=== PATIENT | female | born 1990 | race Caucasian/White ===

== ENCOUNTER 2018-06-09 09:14 | Emergency (ER) | payer BC ==
--- NOTE | 2018-06-09 09:49 | EDM.PDOC ---
ED HPI GENERAL MEDICAL PROBLEM - General Chief Complaint: Genitourinary Problem Stated Complaint: blood in urine Time Seen by Provider: 06/09/18 09:39 Source of Information: Reports: Patient History Limitations: Reports: No Limitations - History of Present Illness INITIAL COMMENTS - FREE TEXT/NARRATIVE: History of present illness: []Patient's had 2 day history of urinary discomfort. She has had UTIs in the past but has never had blood in her urine until this morning. She has had some fevers and chills but no abdominal pain, nausea, vomiting or diarrhea. Review of systems: As per history of present illness and below otherwise all systems reviewed and negative. Past medical history: As per history of present illness and as reviewed below otherwise noncontributory. Surgical history: As per history of present illness and as reviewed below otherwise noncontributory. Social history: No reported history of drug or alcohol abuse. Family history: As per history of present illness and as reviewed below otherwise noncontributory. Physical exam: General: Well developed, well nourished in NAD HEENT: Atraumatic, normocephalic, pupils reactive, negative for conjunctival pallor or scleral icterus, mucous membranes moist, throat clear, neck supple, nontender, trachea midline. Lungs: Clear to auscultation, breath sounds equal bilaterally, chest nontender. Heart: S1S2, regular, negative for clicks, rubs, or JVD. Abdomen: Soft, nondistended, nontender. Negative for masses or hepatosplenomegaly. Negative for costovertebral tenderness. Pelvis: Stable nontender. Genitourinary: Deferred. Rectal: Deferred. Extremities: Atraumatic, negative for cords or calf pain. Neurovascular unremarkable. Neuro: Awake, alert, oriented. Cranial nerves II through XII unremarkable. Cerebellum unremarkable. Motor and sensory unremarkable throughout. Exam nonfocal. Skin:warm and dry Diagnostics: UA-2 to count WBCs and RBCs positive leuk esterase, urine culture, hCG Therapeutics: Rocephin IM ED Course: Unremarkable Impression: UTI Prescriptions: Bactrim, Pyridium Plan: Take meds as directed, increase fluids, follow-up with primary care, return if symptoms worsen or change. Definitive disposition and diagnosis as appropriate pending reevaluation and review of above. Kidneys Pain Score (Numeric/FACES): 8 - Related Data Allergies Allergy/AdvReac Type Severity Reaction Status Date / Time No Known Allergies Allergy Verified 06/09/18 09:23 Home Meds: Home Meds Amitriptyline [Elavil] 5 mg PO DAILY 06/09/18 [History] Phenazopyridine [Pyridium] 100 mg PO TID #9 tab 06/09/18 [Rx] Sulfamethoxazole/Trimethoprim [Bactrim Ds Tablet] 1 each PO BID #20 tablet 06/09 [Rx] Past Medical History HEENT History: Reports: None Cardiovascular History: Reports: None Respiratory History: Reports: None Gastrointestinal History: Reports: None Genitourinary History: Reports: UTI, Recurrent 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 Social & Family History - Family History Family Medical History: Noncontributory - Tobacco Use Smoking Status *Q: Never Smoker - Caffeine Use Caffeine Use: Reports: Coffee - Recreational Drug Use Recreational Drug Use: No ED ROS GENERAL - Review of Systems Review Of Systems: ROS reveals no pertinent complaints other than HPI. ED EXAM, RENAL/ - Physical Exam Exam: See Below (see history of present illness) Course - Vital Signs Last Recorded V/S: Last Vital Signs Temp 96.9 F 06/09/18 09:20 Pulse 91 06/09/18 09:20 Resp 16 06/09/18 09:20 BP 135/106 H 06/09/18 09:20 Pulse Ox 97 06/09/18 09:20 - Orders/Labs/Meds Orders: Active Orders 24 hr Category Date Time Status CULTURE URINE [RM] Stat Lab 06/09/18 09:30 Received cefTRIAXone [Rocephin] 1,000 mg Med 06/09/18 10:06 Active Lidocaine 1% [Xylocaine-MPF 1%] 1 ml IM ONETIME Medication Orders Ceftriaxone Sodium 1,000 mg/ (Lidocaine HCl) 1 mls @ 1 mls/sec IM ONETIME ONE Stop: 06/09/18 10:07 Labs: Laboratory Tests 06/09/18 06/09/18 Range/Units 09:30 09:30 Urine Color YELLOW Urine Appearance SLT CLOUDY Urine pH 6.5 (5.0-8.0) Ur Specific [place] 1.025 (1.001-1.035) Urine Protein 100 (NEGATIVE) mg/dL Urine Glucose (UA) NEGATIVE (NEGATIVE) mg/dL Urine Ketones NEGATIVE (NEGATIVE) mg/dL Urine Occult Blood LARGE H (NEGATIVE) Urine Nitrite NEGATIVE (NEGATIVE) Urine Bilirubin SMALL H (NEGATIVE) Urine Ictotest Urine Urobilinogen 0.2 (<2.0) EU/dL Ur Leukocyte Esterase LARGE (NEGATIVE) Urine RBC TOO NUMEROUS TO CT H (0-2/HPF) Urine WBC TO NUMEROUS TO COUNT H (0-5/HPF) Ur Epithelial Cells FEW (NONE-FEW) Urine Bacteria 1+ H (NEGATIVE) Urinalysis Comment Urine HCG, Qual NEGATIVE (NEGATIVE) Meds: Medications Generic Name Dose Route Start Last Admin Trade Name Freq PRN Reason Stop Dose Admin Ceftriaxone Sodium 1,000 mg/ 1 mls @ 1 mls/sec 06/09/18 10:06 Lidocaine HCl IM 06/09/18 10:07 ONETIME ONE Departure - Departure Time of Disposition: 10:20 Disposition: Home, Self-Care 01 Condition: Good Clinical Impression: UTI (urinary tract infection) Qualifiers: Urinary tract infection type: site unspecified Hematuria presence: with hematuria Qualified Code(s): N39.0 - Urinary tract infection, site not specified ; R31.9 - Hematuria, unspecified - Discharge Information *PRESCRIPTION DRUG MONITORING PROGRAM REVIEWED*: No *COPY OF PRESCRIPTION DRUG MONITORING REPORT IN PATIENT TOÑA: No Prescriptions: Phenazopyridine [Pyridium] 100 mg PO TID #9 tab Sulfamethoxazole/Trimethoprim [Bactrim Ds Tablet] 1 each PO BID #20 tablet Referrals: PCP,None [Primary Care Provider] - Forms: ED Department Discharge Additional Instructions: The following information is given to patients seen in the emergency department who are being discharged to home. This information is to outline your options for follow-up care. We provide all patients seen in our emergency department with a follow-up referral. The need for follow-up, as well as the timing and circumstances, are variable depending upon the specifics of your emergency department visit. If you don't have a primary care physician on staff, we will provide you with a referral. We always advise you to contact your personal physician following an emergency department visit to inform them of the circumstance of the visit and for follow-up with them and/or the need for any referrals to a consulting specialist. The emergency department will also refer you to a specialist when appropriate. This referral assures that you have the opportunity for follow-up care with a specialist. All of these measure are taken in an effort to provide you with optimal care, which includes your follow-up. Under all circumstances we always encourage you to contact your private physician who remains a resource for coordinating your care. When calling for follow-up care, please make the office aware that this follow-up is from your recent emergency room visit. If for any reason you are refused follow-up, please contact the [facility] Emergency Department at and asked to speak to the emergency department charge nurse. Take meds as directed and increase fluids until urine is clear, follow-up with primary care, return if symptoms worsen or change. [facility] [address] [place] [id number] - My Orders Last 24 Hours: My Active Orders 06/09/18 09:30 CULTURE URINE [RM] Stat 06/09/18 10:06 cefTRIAXone [Rocephin] 1,000 mg Lidocaine 1% [Xylocaine-MPF 1%] 1 ml IM ONETIME - Assessment/Plan Last 24 Hours: My Active Orders 06/09/18 09:30 CULTURE URINE [RM] Stat 06/09/18 10:06 cefTRIAXone [Rocephin] 1,000 mg Lidocaine 1% [Xylocaine-MPF 1%] 1 ml IM ONETIME
[2018-06-09] MEDS ORDERED: cefTRIAXone 1,000 MG in Lidocaine 1% 1 ML IM ONE (10:06)
== END 2018-06-09 10:48 | disposition home or self-care (01) ==
LOC: MW.ED 09:14
DX: N39.0 Urinary tract infection, site not specified (principal)
CPT/HCPCS: 81001; 81025; 87086; 87088; 87186; 96372; 99283; J0696; 99282

== ENCOUNTER 2020-01-11 10:18 | Inpatient (IN) | payer MEDICAID ==
[2020-01-11] MEDS ORDERED: Butorphanol 1 MG/ML SDV IVPUSH PRN (11:25)
[2020-01-11] MEDS ORDERED: Tranexamic Acid 1,000 MG in Sodium Chloride 0.9% 100 ML IV PRN (11:25)
[2020-01-11] MEDS ORDERED: Sodium Chloride 0.9% 2.5 ML Syringe FLUSH PRN (11:25)
[2020-01-11] MEDS ORDERED: Sodium Chloride 0.9% 10 ML Syringe FLUSH PRN (11:25)
[2020-01-11] MEDS ORDERED: Terbutaline 1 MG/ML SDV SUBCUT PRN (11:25)
[2020-01-11] MEDS ORDERED: Lidocaine 1% 50 ML MDV INJECT PRN (11:25)
[2020-01-11] MEDS ORDERED: Misoprostol 200 MCG Tab PO PRN (11:25)
[2020-01-11] MEDS ORDERED: Carboprost Tromethamine 250 MCG/1 ML Amp IM PRN (11:25)
[2020-01-11] MEDS ORDERED: Nalbuphine 10 MG/1 ML Vial IVPUSH PRN (11:25)
[2020-01-11] MEDS ORDERED: Methylergonovine 0.2 MG/1 ML Amp IM PRN (11:25)
[2020-01-11] MEDS ORDERED: Water For Irrigation,Sterile 1,000 ML Container IRR PRN (11:25)
[2020-01-11] MEDS ORDERED: Sodium Chloride 0.9% 10 ML SDV IV PRN (11:25)
[2020-01-11] MEDS ORDERED: Oxytocin/0.9 % Sodium Chloride 30 UNIT/500 ML BAG IV SCH ×2 (11:30)
[2020-01-11 11:48] LABS: BLOOD UREA NITROGEN,BUN 7 mg/dL (7.0-18.0); CHLORIDE,CL 102 mmol/L (98-107); GLUCOSE RANDOM 78 mg/dL (74-106); POTASSIUM,K 3.8 mmol/L (3.5-5.1); SODIUM,NA 136 mmol/L (136-145)
[2020-01-11] MEDS: Lactated Ringers 1,000 ML IV SCH ×3 (12:29→23:59)
[2020-01-11] MEDS ORDERED: Bupivicaine/fentaNYL/NS 250 ML ONE (19:36)
--- NOTE | 2020-01-11 20:47 | PCM.PREANE ---
Preanesthetic Assessment - Procedure Proposed Procedure: Continuous Labor Epidural - Anesthesia/Transfusion/Family Hx Anesthesia History: Prior Anesthesia Without Reaction Transfusion History: No Prior Transfusion(s) - Review of Systems General: No Symptoms Pulmonary: No Symptoms Cardiovascular: No Symptoms Gastrointestinal: No Symptoms Neurological: No Symptoms Other: Reports: None - Physical Assessment Height: 5 ft 2 in Weight: 86.183 kg ASA Class: 2 Mental Status: Alert & Oriented x3 Airway Class: Mallampati = 2 Dentition: Reports: Normal Dentition Thyro-Mental Finger Breadths: 3 Mouth Opening Finger Breadths: 3 ROM/Head Extension: Full Lungs: Clear to Auscultation, Normal Respiratory Effort Cardiovascular: Regular Rate, Regular Rhythm - Lab Values: Laboratory Last Values WBC 10.70 K/uL (4.0-11.0) 01/11/20 11:18 RBC 3.91 M/uL (4.30-5.90) L 01/11/20 11:18 Hgb 12.5 g/dL (12.0-16.0) 01/11/20 11:18 Hct 35.9 % (36.0-46.0) L 01/11/20 11:18 MCV 91.8 fL (80.0-98.0) 01/11/20 11:18 MCH 32.0 pg (27.0-32.0) 01/11/20 11:18 MCHC 34.8 g/dL (31.0-37.0) 01/11/20 11:18 RDW Std Deviation 44.4 fl (28.0-62.0) 01/11/20 11:18 RDW Coeff of El 13 % (11.0-15.0) 01/11/20 11:18 Plt Count 122 K/uL (150-400) L 01/11/20 11:18 MPV 11.00 fL (7.40-12.00) 01/11/20 11:18 Nucleated RBC % 0.0 /100WBC 01/11/20 11:18 Nucleated RBCs # 0 K/uL 01/11/20 11:18 Sodium 136 mmol/L (136-145) 01/11/20 11:18 Potassium 3.8 mmol/L (3.5-5.1) 01/11/20 11:18 Chloride 102 mmol/L (98-107) 01/11/20 11:18 Carbon Dioxide 23.0 mmol/L (21.0-32.0) 01/11/20 11:18 BUN 7 mg/dL (7.0-18.0) 01/11/20 11:18 Creatinine 0.6 mg/dL (0.6-1.0) 01/11/20 11:18 Est Cr Clr Drug Dosing TNP 01/11/20 11:18 Estimated GFR (MDRD) > 60.0 ml/min 01/11/20 11:18 Glucose 78 mg/dL (74-106) 01/11/20 11:18 Uric Acid 4.8 mg/dL (2.6-7.2) 01/11/20 11:18 Calcium 8.3 mg/dL (8.5-10.1) L 01/11/20 11:18 Total Bilirubin 0.6 mg/dL (0.2-1.0) 01/11/20 11:18 AST 20 IU/L (15-37) 01/11/20 11:18 ALT 21 IU/L (14-63) 01/11/20 11:18 Alkaline Phosphatase 135 U/L (46-116) H 01/11/20 11:18 Total Protein 6.2 g/dL (6.4-8.2) L 01/11/20 11:18 Albumin 2.9 g/dL (3.4-5.0) L 01/11/20 11:18 Globulin 3.3 g/dL (2.6-4.0) 01/11/20 11:18 Albumin/Globulin Ratio 0.9 (0.9-1.6) 01/11/20 11:18 Urine Color YELLOW 01/11/20 11:10 Urine Appearance CLEAR 01/11/20 11:10 Urine pH 7.0 (5.0-8.0) 01/11/20 11:10 Ur Specific [place] 1.020 (1.001-1.035) 01/11/20 11:10 Urine Protein NEGATIVE mg/dL (NEGATIVE) 01/11/20 11:10 Urine Glucose (UA) NEGATIVE mg/dL (NEGATIVE) 01/11/20 11:10 Urine Ketones NEGATIVE mg/dL (NEGATIVE) 01/11/20 11:10 Urine Occult Blood TRACE-INTACT (NEGATIVE) H 01/11/20 11:10 Urine Nitrite NEGATIVE (NEGATIVE) 01/11/20 11:10 Urine Bilirubin NEGATIVE (NEGATIVE) 01/11/20 11:10 Urine Urobilinogen 0.2 EU/dL (<2.0) 01/11/20 11:10 Ur Leukocyte Esterase NEGATIVE (NEGATIVE) 01/11/20 11:10 Ur Random Creatinine 97.8 mg/dL 01/11/20 11:00 U Random Total Protein 14.7 mg/dL (<11.9) H 01/11/20 11:00 Protein/Creatinin Ratio 0.2 01/11/20 11:00 Membrane Rupture POSITIVE 01/11/20 10:40 Blood Type O POSITIVE 01/11/20 11:18 Antibody Screen NEGATIVE 01/11/20 11:18 - Allergies Allergies/Adverse Reactions: Allergies Allergy/AdvReac Type Severity Reaction Status Date / Time No Known Allergies Allergy Verified 06/09/18 09:23 - Anesthesia Plan Free Text/Narrative:: Continuous Labor Epidural - Acknowledgements Anesthesia Type Planned: Spinal Pt an Appropriate Candidate for the Planned Anesthesia: Yes Alternatives and Risks of Anesthesia Discussed w Pt/Guardian: Yes Pt/Guardian Understands and Agrees with Anesthesia Plan: Yes PreAnesthesia Questionnaire HEENT History: Reports: None Cardiovascular History: Reports: Hypertension Respiratory History: Reports: None Gastrointestinal History: Reports: None Genitourinary History: Reports: UTI, Recurrent 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 Para: 0 LMP (Approximate): Musculoskeletal History: Reports: None Neurological History: Reports: None Psychiatric History: Reports: None Endocrine/Metabolic History: Reports: None Hematologic History: Reports: None Immunologic History: Reports: None Oncologic (Cancer) History: Reports: None Dermatologic History: Reports: None - Infectious Disease History Infectious Disease History: Reports: Chicken Pox, Human Papilloma Virus (HPV) - Past Surgical History GI Surgical History: Reports: Appendectomy Female Surgical History: Reports: Other (See Below) Other Female Surgeries/Procedures: "Kidney sugery" at 21 per patient. Left ureteral stent & repair. Oncologic Surgical History: Reports: Lumpectomy Other Oncologic Surgeries/Procedures: Right Lumpectomy - SUBSTANCE USE Smoking Status *Q: Never Smoker Second Hand Smoke Exposure: No Recreational Drug Use History: No - HOME MEDS Home Medications: Home Meds Amitriptyline [Elavil] 5 mg PO DAILY 06/09/18 [History] Phenazopyridine [Pyridium] 100 mg PO TID #9 tab 06/09/18 [Rx] Sulfamethoxazole/Trimethoprim [Bactrim Ds Tablet] 1 each PO BID #20 tablet 06/09 [Rx] Acetaminophen [Tylenol] 1 cap PO ASDIRECTED PRN 01/11/20 [History] Magnesium Oxide [Mag-Oxide] 200 mg PO DAILY 01/11/20 [History] Nitrofurantoin Monohyd/M-Cryst [Macrobid 100 mg Capsule] 100 mg PO DAILY [History] Pnv No.95/Ferrous Fum/Folic AC [ Vitamin Tablet] 1 tab PO DAILY [History] - CURRENT (IN HOUSE) MEDS Current Meds: Current Medications Butorphanol Tartrate (Stadol) 1 mg IVPUSH Q1H PRN PRN Reason: Pain Last Admin: 01/11/20 18:31 Dose: 1 mg Carboprost Tromethamine (Hemabate Ds) 250 mcg IM ASDIRECTED PRN PRN Reason: Post Hemorrhage Tranexamic Acid 1,000 mg/ (Sodium Chloride) 110 mls @ 660 mls/hr IV ONETIME PRN PRN Reason: Bleeding Lactated Ringer's (Ringers, Lactated) 1,000 mls @ 150 mls/hr IV ASDIRECTED CONCHIS Last Infusion: 01/11/20 20:25 Dose: 150 mls/hr Oxytocin/Sodium Chloride (Oxytocin 30 Unit/500 Ml-Ns) 30 unit in 500 mls @ 500 mls/hr IV ASDIRECTED CONCHIS Oxytocin/Sodium Chloride (Oxytocin 30 Unit/500 Ml-Ns) 30 unit in 500 mls @ 2 mls/hr IV TITRATE CONCHIS; Protocol Last Titration: 01/11/20 14:15 Dose: 8 munits/min, 8 mls/hr Lidocaine HCl (Xylocaine 1%) 50 ml INJECT ONETIME PRN PRN Reason: Laceration repair Methylergonovine Maleate (Methergine) 0.2 mg IM ASDIRECTED PRN PRN Reason: Post Hemorrhage Misoprostol (Cytotec) 200 mcg PO ONETIME PRN PRN Reason: Post Hemorrhage Nalbuphine HCl (Nubain) 10 mg IVPUSH Q1H PRN PRN Reason: Pain (severe 7-10) Sodium Chloride (Saline Flush) 10 ml FLUSH ASDIRECTED PRN PRN Reason: Keep Vein Open Sodium Chloride (Saline Flush) 2.5 ml FLUSH ASDIRECTED PRN PRN Reason: Keep Vein Open Sodium Chloride (Normal Saline) 10 ml IV ASDIRECTED PRN PRN Reason: IV Use Sterile Water (Sterile Water For Irrigation) 1,000 ml IRR ASDIRECTED PRN PRN Reason: delivery Terbutaline Sulfate (Brethine) 0.25 mg SUBCUT ASDIRECTED PRN PRN Reason: Tacysystole Discontinued Medications Fentanyl/Bupivacaine HCl (Fentanyl/Bupivacaine/Ns 2 Mcg-0.125% 250 Ml) Confirm Administered Dose 250 mls @ as directed .ROUTE .[facility] ONE Stop: 01/11/20 19:37
[2020-01-11] MEDS ORDERED: fentaNYL 100 MCG/2 ML SDV ONE (23:25)
[2020-01-11] MEDS ORDERED: Bupivacaine 0.25% 10 ML SDV ONE (23:52)
--- NOTE | 2020-01-12 00:18 | PCM.SN.2 ---
- Free Text/Narrative Note: 01/11/2020 at 2315: Called for Patient with inadequate pain control. Patient dilated to 8 cm and rating pain 6/10 with contractions. Fentanyl 100 mcg given at 2330. Changed pump settings to 6 ml continuous infusion, 6 ml bolus option every 10 minutes with lockout max dose of 24ml/hr. Patient bolus 6 ml initiated via pump at approximately 2336. At 2043, patient continues to rate pain 5/10. Clinician bolus of 3 ml given via pump. Vital signs remain stable throughout. Patient repositioned by RN. At 2350, patient continues with minimal relief and rates pain 5/10. Bupivacaine 0.25% 5 ml given manually at 2352. At 0005, patient rates pain 2/10 and feels comfortable at this time. Dr. Hwang has been here and is assessing patient. Will continue to monitor as needed.
--- NOTE | 2020-01-12 02:46 | PCM.DEL ---
L & D Note - General Info Date of Service: 01/12/20 Mother's Due Date: 01/20/20 - Delivery Note Labor: Induced by Oxytocin Delivery Outcome: Livebirth Infant Delivery Method: Spontaneous Vaginal Delivery-Single Delivery Mode: Spontaneous Presentation: Left Occiput Posterior (LOP) Nuchal Cord: None Prep: Other Anesthesia Type: Epidural, Local Anesthetic: Lidocaine (Xylocaine) 0.5% Plain Local Anesthetic Volume: Other (10 ml) Amniotic Fluid Description: Clear Episiotomy Type: None Laceration: Vaginal Suture type: Vicryl Suture size: 3-0 Placenta: Intact, Spontaneous Cord: 3 Vessels Estimated Blood Loss: 200 Resuscitation Needed: No : Suctioned Score 1 min: 8 Score 5 min: 9 Delivery Comments (Free Text/Narrative):: PROM with induction, gestational hypertension, negative pre-clamptic evaluation. Liveborn Male 2880 grams. - General Info Date of Service: 01/12/20 - Patient Data Weight - Most Recent: 86.183 kg Lab Results Last 24 Hours: Laboratory Results - last 24 hr 01/11/20 01/11/20 01/11/20 Range/Units 10:40 11:00 11:10 WBC (4.0-11.0) K/uL RBC (4.30-5.90) M/uL Hgb (12.0-16.0) g/dL Hct (36.0-46.0) % MCV (80.0-98.0) fL MCH (27.0-32.0) pg MCHC (31.0-37.0) g/dL RDW Std Deviation (28.0-62.0) fl RDW Coeff of El (11.0-15.0) % Plt Count (150-400) K/uL MPV (7.40-12.00) fL Nucleated RBC % /100WBC Nucleated RBCs # K/uL Sodium (136-145) mmol/L Potassium (3.5-5.1) mmol/L Chloride (98-107) mmol/L Carbon Dioxide (21.0-32.0) mmol/L BUN (7.0-18.0) mg/dL Creatinine (0.6-1.0) mg/dL Est Cr Clr Drug Dosing Estimated GFR (MDRD) ml/min Glucose (74-106) mg/dL Uric Acid (2.6-7.2) mg/dL Calcium (8.5-10.1) mg/dL Total Bilirubin (0.2-1.0) mg/dL AST (15-37) IU/L ALT (14-63) IU/L Alkaline Phosphatase (46-116) U/L Total Protein (6.4-8.2) g/dL Albumin (3.4-5.0) g/dL Globulin (2.6-4.0) g/dL Albumin/Globulin Ratio (0.9-1.6) Urine Color YELLOW Urine Appearance CLEAR Urine pH 7.0 (5.0-8.0) Ur Specific [place] 1.020 (1.001-1.035) Urine Protein NEGATIVE (NEGATIVE) mg/dL Urine Glucose (UA) NEGATIVE (NEGATIVE) mg/dL Urine Ketones NEGATIVE (NEGATIVE) mg/dL Urine Occult Blood TRACE-INTACT H (NEGATIVE) Urine Nitrite NEGATIVE (NEGATIVE) Urine Bilirubin NEGATIVE (NEGATIVE) Urine Urobilinogen 0.2 (<2.0) EU/dL Ur Leukocyte Esterase NEGATIVE (NEGATIVE) Ur Random Creatinine 97.8 mg/dL U Random Total Protein 14.7 H (<11.9) mg/dL Protein/Creatinin Ratio 0.2 Membrane Rupture POSITIVE Blood Type Antibody Screen 01/11/20 01/11/20 01/11/20 Range/Units 11:18 11:18 11:18 WBC 10.70 (4.0-11.0) K/uL RBC 3.91 L (4.30-5.90) M/uL Hgb 12.5 (12.0-16.0) g/dL Hct 35.9 L (36.0-46.0) % MCV 91.8 (80.0-98.0) fL MCH 32.0 (27.0-32.0) pg MCHC 34.8 (31.0-37.0) g/dL RDW Std Deviation 44.4 (28.0-62.0) fl RDW Coeff of El 13 (11.0-15.0) % Plt Count 122 L (150-400) K/uL MPV 11.00 (7.40-12.00) fL Nucleated RBC % 0.0 /100WBC Nucleated RBCs # 0 K/uL Sodium 136 (136-145) mmol/L Potassium 3.8 (3.5-5.1) mmol/L Chloride 102 (98-107) mmol/L Carbon Dioxide 23.0 (21.0-32.0) mmol/L BUN 7 (7.0-18.0) mg/dL Creatinine 0.6 (0.6-1.0) mg/dL Est Cr Clr Drug Dosing TNP Estimated GFR (MDRD) > 60.0 ml/min Glucose 78 (74-106) mg/dL Uric Acid 4.8 (2.6-7.2) mg/dL Calcium 8.3 L (8.5-10.1) mg/dL Total Bilirubin 0.6 (0.2-1.0) mg/dL AST 20 (15-37) IU/L ALT 21 (14-63) IU/L Alkaline Phosphatase 135 H (46-116) U/L Total Protein 6.2 L (6.4-8.2) g/dL Albumin 2.9 L (3.4-5.0) g/dL Globulin 3.3 (2.6-4.0) g/dL Albumin/Globulin Ratio 0.9 (0.9-1.6) Urine Color Urine Appearance Urine pH (5.0-8.0) Ur Specific [place] (1.001-1.035) Urine Protein (NEGATIVE) mg/dL Urine Glucose (UA) (NEGATIVE) mg/dL Urine Ketones (NEGATIVE) mg/dL Urine Occult Blood (NEGATIVE) Urine Nitrite (NEGATIVE) Urine Bilirubin (NEGATIVE) Urine Urobilinogen (<2.0) EU/dL Ur Leukocyte Esterase (NEGATIVE) Ur Random Creatinine mg/dL U Random Total Protein (<11.9) mg/dL Protein/Creatinin Ratio Membrane Rupture Blood Type O POSITIVE Antibody Screen NEGATIVE Med Orders - Current: Current Medications Butorphanol Tartrate (Stadol) 1 mg IVPUSH Q1H PRN PRN Reason: Pain Last Admin: 01/11/20 18:31 Dose: 1 mg Carboprost Tromethamine (Hemabate Ds) 250 mcg IM ASDIRECTED PRN PRN Reason: Post Hemorrhage Tranexamic Acid 1,000 mg/ (Sodium Chloride) 110 mls @ 660 mls/hr IV ONETIME PRN PRN Reason: Bleeding Lactated Ringer's (Ringers, Lactated) 1,000 mls @ 150 mls/hr IV ASDIRECTED CONCHIS Last Admin: 01/11/20 23:59 Dose: 500 mls/hr Oxytocin/Sodium Chloride (Oxytocin 30 Unit/500 Ml-Ns) 30 unit in 500 mls @ 500 mls/hr IV ASDIRECTED [facility] Oxytocin/Sodium Chloride (Oxytocin 30 Unit/500 Ml-Ns) 30 unit in 500 mls @ 2 mls/hr IV TITRATE CONCHIS; Protocol Last Titration: 01/11/20 14:15 Dose: 8 munits/min, 8 mls/hr Lidocaine HCl (Xylocaine 1%) 50 ml INJECT ONETIME PRN PRN Reason: Laceration repair Methylergonovine Maleate (Methergine) 0.2 mg IM ASDIRECTED PRN PRN Reason: Post Hemorrhage Misoprostol (Cytotec) 200 mcg PO ONETIME PRN PRN Reason: Post Hemorrhage Nalbuphine HCl (Nubain) 10 mg IVPUSH Q1H PRN PRN Reason: Pain (severe 7-10) Sodium Chloride (Saline Flush) 10 ml FLUSH ASDIRECTED PRN PRN Reason: Keep Vein Open Sodium Chloride (Saline Flush) 2.5 ml FLUSH ASDIRECTED PRN PRN Reason: Keep Vein Open Sodium Chloride (Normal Saline) 10 ml IV ASDIRECTED PRN PRN Reason: IV Use Sterile Water (Sterile Water For Irrigation) 1,000 ml IRR ASDIRECTED PRN PRN Reason: delivery Terbutaline Sulfate (Brethine) 0.25 mg SUBCUT ASDIRECTED PRN PRN Reason: Tacysystole Discontinued Medications Bupivacaine HCl (Sensorcaine-Mpf 0.25%) Confirm Administered Dose 10 ml .ROUTE .STK-MED ONE Stop: 01/11/20 23:53 Fentanyl (Sublimaze) Confirm Administered Dose 100 mcg .ROUTE .STK-MED ONE Stop: 01/11/20 23:26 Fentanyl/Bupivacaine HCl (Fentanyl/Bupivacaine/Ns 2 Mcg-0.125% 250 Ml) Confirm Administered Dose 250 mls @ as directed .ROUTE .STK-MED ONE Stop: 01/11/20 19:37 - Problem List & Annotations (1) PROM with onset of labor within 24 hours, delivered, curr hospitaliz SNOMED Code(s): 482090842, 637353498 Code(s): O42.00 - JEB ROM, ONSET LABOR W/N 24 HR OF RUPT, UNSP WEEKS OF GEST Status: Acute Current Visit: Yes (2) Vaginal delivery SNOMED Code(s): 529772402 Code(s): O80 - ENCOUNTER FOR FULL-TERM UNCOMPLICATED DELIVERY Status: Acute Current Visit: Yes (3) Gestational thrombocytopenia without hemorrhage SNOMED Code(s): 053891798 Code(s): O99.119 - OTH DIS OF BLD/BLD-FORM ORG/IMMUN MECHNSM COMP PREG,UNSP TRI; D69.6 - THROMBOCYTOPENIA, UNSPECIFIED Status: Acute Current Visit: Yes (4) Chronic hypertension affecting SNOMED Code(s): 80714903 Code(s): O10.919 - UNSP PRE-EXISTING HTN COMP , UNSP TRIMESTER Status: Acute Current Visit: Yes - Problem List Review Problem List Initiated/Reviewed/Updated: Yes - My Orders Last 24 Hours: My Active Orders 01/11/20 10:52 Resuscitation Status Routine 01/11/20 10:53 Non Stress Test [RC] PER UNIT ROUTINE Up ad Arline [RC] ASDIRECTED Vaginal Exam [RC] Click to Edit Vital Signs [RC] PER UNIT ROUTINE 01/11/20 11:18 RPR (SYPHILIS SERO) W/ RFLX [REF] Routine 01/11/20 11:25 Patient Status [ADT] Routine Bedrest Bathroom Privileges [RC] ASDIRECTED Communication Order [RC] ASDIRECTED Communication Order [RC] ASDIRECTED Heart Tones [RC] CONTINUOUS May Shower [RC] ASDIRECTED Notify Provider [RC] PRN Notify Provider [RC] PRN Oxygen Therapy [RC] ASDIRECTED Up ad Arline [RC] ASDIRECTED Vaginal Exam [RC] PRN Vaginal Exam [RC] PRN Vital Signs [RC] PER UNIT ROUTINE Vital Signs [RC] PER UNIT ROUTINE Butorphanol [Stadol] 1 mg IVPUSH Q1H PRN Carboprost Tromethamine [Hemabate DS] 250 mcg IM ASDIRECTED PRN Lidocaine 1% [Xylocaine 1%] 50 ml INJECT ONETIME PRN Methylergonovine [Methergine] 0.2 mg IM ASDIRECTED PRN Nalbuphine [Nubain] 10 mg IVPUSH Q1H PRN Sodium Chloride 0.9% [Normal Saline] 10 ml IV ASDIRECTED PRN Sodium Chloride 0.9% [Saline Flush] 10 ml FLUSH ASDIRECTED PRN Sodium Chloride 0.9% [Saline Flush] 2.5 ml FLUSH ASDIRECTED PRN Terbutaline [Brethine] 0.25 mg SUBCUT ASDIRECTED PRN Tranexamic Acid [Cyklokapron] 1,000 mg Sodium Chloride 0.9% [Normal Saline] 100 ml IV ONETIME Water For Irrigation,Sterile [Sterile Water for Irrigation] 1,000 ml IRR ASDIRECTED PRN miSOPROStoL [Cytotec] 200 mcg PO ONETIME PRN Scalp Electrode [WOMSER] Per Unit Routine Peripheral IV Insertion Adult [OM.PC] Routine 01/11/20 11:30 Lactated Ringers [Ringers, Lactated] 1,000 ml IV ASDIRECTED Oxytocin/0.9 % Sodium Chloride [Oxytocin 30 Unit/500 ML-NS] 30 unit in 500 ml IV ASDIRECTED Oxytocin/0.9 % Sodium Chloride [Oxytocin 30 Unit/500 ML-NS] 30 unit in 500 ml IV TITRATE
[2020-01-12] MEDS ORDERED: Docusate Sodium 100 MG Cap PO PRN (02:48)
[2020-01-12] MEDS ORDERED: Acetaminophen 500 MG Tab PO PRN ×2 (02:48)
[2020-01-12] MEDS ORDERED: Ibuprofen 400 MG Tab PO PRN (02:48)
[2020-01-12] MEDS ORDERED: Witch Hazel Medicated Pads 40/Jar TOP PRN (02:48)
[2020-01-12] MEDS ORDERED: Bisacodyl 10 MG Supp RECTAL PRN (02:48)
[2020-01-12] MEDS ORDERED: Tranexamic Acid 1,000 MG in Sodium Chloride 0.9% 100 ML IV PRN (02:48)
[2020-01-12] MEDS ORDERED: Lanolin 100% Cream 7 GM Tube TOP PRN (02:48)
[2020-01-12] MEDS ORDERED: Benzocaine/Menthol 20%-0.5% Spray 78 GM Cannister TOP PRN (02:48)
--- NOTE | 2020-01-12 03:32 | OR ---
SURGEON: Uzma Hwang M.D. DATE OF PROCEDURE: 01/12/2020 PREOPERATIVE DIAGNOSES: 1. A 38-6/7-week intrauterine . 2. Premature rupture of membranes with induction. 3. Chronic hypertension. 4. Gestational thrombocytopenia. POSTOPERATIVE DIAGNOSES: 1. A 38-6/7-week intrauterine . 2. Premature rupture of membranes with induction. 3. Chronic hypertension. 4. Gestational thrombocytopenia. PROCEDURES: 1. Pitocin induction of labor. 2. Term spontaneous vaginal delivery. 3. Repair of a vaginal laceration. PRIMARY SURGEON: Uzma Hwang M.D. ANESTHESIA: Epidural and local. ESTIMATED BLOOD LOSS: Less than 200 mL. FINDINGS: A liveborn male, scores 8 and 9, weighing 2880 g. Placenta, spontaneous, Schultze, intact, with 3 vessels. A vaginal laceration was repaired. COMPLICATIONS: None known. DISPOSITION: Mother and baby are in the LDR in good condition. BRIEF HISTORY: This is a 29-year-old female. She is G1, P0; presents at 38-5/7 weeks' gestation, spontaneous rupture of membranes, clear fluid, 3 cm; was started on Pitocin overall through labor. Category I heart tones. Initially, she had elevated blood pressures on presentation. She is known to have chronic hypertension but has not required medications through . She had preeclamptic lab workup, which was negative, particularly with no proteinuria. She has had thrombocytopenia through the 3rd trimester, and platelets were stable relative to those drawn in the clinic at 122. She progressed to complete. DESCRIPTION OF PROCEDURE: With the patient in the dorsal lithotomy position, the patient pushed over a 2- hour time period to a 5+ station, at which time the head was delivered spontaneously and atraumatically over the perineum with support with subsequent delivery of the infant's shoulders and body without any difficulty. The was bulb suctioned by nose and mouth, and after the cord had ceased to pulsate, it was doubly clamped and cut. The infant was handed to the mother in the presence of the nurse attending the delivery. The was a liveborn male, scores 8 and 9, weighing 2880 g. Cord blood was collected for cord ABGs as well as routine cord blood sampling. Pitocin was initiated after delivery of the infant to assist with delivery of the placenta, which was delivered spontaneously, Schultze, intact, with 3 vessels. Upon inspection of the pelvis and perineum, there were no periurethral, vaginal sidewall, cervical, rectal, or perineal lacerations. There was a small vaginal lower-segment laceration extending approximately 3 cm. 1% lidocaine was injected, and 3-0 Vicryl was utilized in a running locked fashion to reapproximate the tissue. Final sponge, needle, and instrument counts were correct. There were no known complications. Mother and baby remained in the LDR in good condition. REYMUNDO HAGEN /[id number]
[2020-01-12] MEDS: Ibuprofen 800 MG Tab PO PRN ×2 (09:33→18:25)
--- NOTE | 2020-01-12 10:42 | PCM48HPAN ---
Post Anesthesia Note - EVALUATION WITHIN 48HRS OF ANESTHETIC Vital Signs in Normal Range: Yes Patient Participated in Evaluation: Yes Respiratory Function Stable: Yes Airway Patent: Yes Cardiovascular Function Stable: Yes Hydration Status Stable: Yes Pain Control Satisfactory: Yes Nausea and Vomiting Control Satisfactory: Yes Mental Status Recovered: Yes Vital Signs: Last Vital Signs Temp 36.4 C 01/12/20 07:43 Pulse 97 01/12/20 07:43 Resp 16 01/12/20 07:43 BP 121/84 01/12/20 07:43 Pulse Ox 100 01/12/20 07:43 - COMMENTS/OBSERVATIONS Free Text/Narrative:: Patient lying in bed. Has has been up without difficulty. No anesthesia complaints or concerns at this time. No anesthesia complications noted.
--- NOTE | 2020-01-12 15:54 | PCM.PNPP ---
- General Info Date of Service: 01/12/20 Functional Status: Reports: Pain Controlled, Tolerating Diet, Ambulating, Urinating - Review of Systems General: Reports: No Symptoms HEENT: Reports: No Symptoms Pulmonary: Reports: No Symptoms Cardiovascular: Reports: No Symptoms Gastrointestinal: Reports: No Symptoms Genitourinary: Reports: No Symptoms Musculoskeletal: Reports: No Symptoms Skin: Reports: No Symptoms Neurological: Reports: No Symptoms Psychiatric: Reports: No Symptoms - General Info Date of Service: 01/12/20 - Patient Data Vital Signs - Most Recent: Last Vital Signs Temp 36.4 C 01/12/20 07:43 Pulse 97 01/12/20 07:43 Resp 16 01/12/20 07:43 BP 121/84 01/12/20 07:43 Pulse Ox 100 01/12/20 07:43 Weight - Most Recent: 86.183 kg Lab Results - Last 24 Hours: Laboratory Results - last 24 hr 01/12/20 01/12/20 Range/Units 02:26 06:55 WBC 20.36 H (4.0-11.0) K/uL RBC 4.05 L (4.30-5.90) M/uL Hgb 12.9 (12.0-16.0) g/dL Hct 37.3 (36.0-46.0) % MCV 92.1 (80.0-98.0) fL MCH 31.9 (27.0-32.0) pg MCHC 34.6 (31.0-37.0) g/dL RDW Std Deviation 44.2 (28.0-62.0) fl RDW Coeff of El 13 (11.0-15.0) % Plt Count 145 L (150-400) K/uL MPV 10.60 (7.40-12.00) fL Nucleated RBC % 0.0 /100WBC Nucleated RBCs # 0 K/uL Cord ABG pH 7.332 (7.18-7.38) Cord ABG Base Excess -5 (-10--2) Cord VBG pH 7.439 (7.25-7.45) Cord VBG Base Excess -4 (-10--2) Med Orders - Current: Current Medications Acetaminophen (Tylenol Extra Strength) 500 mg PO Q4H PRN PRN Reason: Pain Acetaminophen (Tylenol Extra Strength) 1,000 mg PO Q4H PRN PRN Reason: Pain Benzocaine/Menthol (Dermoplast Pain Relief 20%-0.5% [place]) 78 gm TOP ASDIRECTED PRN PRN Reason: Perineal Comfort Measure Bisacodyl (Dulcolax) 10 mg RECTAL ONETIME PRN PRN Reason: Constipation Docusate Sodium (Colace) 100 mg PO BID PRN PRN Reason: Constipation Emollient Ointment (Lansinoh Hpa) 0 gm TOP ASDIRECTED PRN PRN Reason: Sore Nipples Tranexamic Acid 1,000 mg/ (Sodium Chloride) 110 mls @ 660 mls/hr IV ONETIME PRN PRN Reason: Bleeding Ibuprofen (Motrin) 400 mg PO Q4H PRN PRN Reason: Pain Ibuprofen (Motrin) 800 mg PO Q6H PRN PRN Reason: Pain Last Admin: 01/12/20 09:33 Dose: 800 mg Witch Mari (Tucks) 1 pad TOP ASDIRECTED PRN PRN Reason: comfort care Discontinued Medications Bupivacaine HCl (Sensorcaine-Mpf 0.25%) Confirm Administered Dose 10 ml .ROUTE .STK-MED ONE Stop: 01/11/20 23:53 Butorphanol Tartrate (Stadol) 1 mg IVPUSH Q1H PRN PRN Reason: Pain Last Admin: 01/11/20 18:31 Dose: 1 mg Carboprost Tromethamine (Hemabate Ds) 250 mcg IM ASDIRECTED PRN PRN Reason: Post Hemorrhage Fentanyl (Sublimaze) Confirm Administered Dose 100 mcg .ROUTE .STK-MED ONE Stop: 01/11/20 23:26 Tranexamic Acid 1,000 mg/ (Sodium Chloride) 110 mls @ 660 mls/hr IV ONETIME PRN PRN Reason: Bleeding Lactated Ringer's (Ringers, Lactated) 1,000 mls @ 150 mls/hr IV ASDIRECTED [facility] Last Admin: 01/11/20 23:59 Dose: 500 mls/hr Oxytocin/Sodium Chloride (Oxytocin 30 Unit/500 Ml-Ns) 30 unit in 500 mls @ 500 mls/hr IV ASDIRECTED [facility] Last Infusion: 01/12/20 02:40 Dose: 500 mls/hr Oxytocin/Sodium Chloride (Oxytocin 30 Unit/500 Ml-Ns) 30 unit in 500 mls @ 2 mls/hr IV TITRATE CONCHIS; Protocol Last Titration: 01/12/20 02:25 Dose: 0 munits/min, 0 mls/hr Fentanyl/Bupivacaine HCl (Fentanyl/Bupivacaine/Ns 2 Mcg-0.125% 250 Ml) Confirm Administered Dose 250 mls @ as directed .ROUTE .STK-MED ONE Stop: 01/11/20 19:37 Lidocaine HCl (Xylocaine 1%) 50 ml INJECT ONETIME PRN PRN Reason: Laceration repair Last Admin: 01/12/20 02:35 Dose: 50 ml Methylergonovine Maleate (Methergine) 0.2 mg IM ASDIRECTED PRN PRN Reason: Post Hemorrhage Misoprostol (Cytotec) 200 mcg PO ONETIME PRN PRN Reason: Post Hemorrhage Nalbuphine HCl (Nubain) 10 mg IVPUSH Q1H PRN PRN Reason: Pain (severe 7-10) Sodium Chloride (Saline Flush) 10 ml FLUSH ASDIRECTED PRN PRN Reason: Keep Vein Open Sodium Chloride (Saline Flush) 2.5 ml FLUSH ASDIRECTED PRN PRN Reason: Keep Vein Open Sodium Chloride (Normal Saline) 10 ml IV ASDIRECTED PRN PRN Reason: IV Use Sterile Water (Sterile Water For Irrigation) 1,000 ml IRR ASDIRECTED PRN PRN Reason: delivery Last Admin: 01/12/20 02:30 Dose: 1,000 ml Terbutaline Sulfate (Brethine) 0.25 mg SUBCUT ASDIRECTED PRN PRN Reason: Tacysystole - Interaction Infant Disposition, : [place] in Room with Family Support Person: Significant Other - Recovery Exam Fundal Tone: Firm Fundal Level: 1 Fingerbreadths Below Umbilicus Fundal Placement: Midline Lochia Amount: Scant Lochia Color: Rubra/Red Perineum Description: Intact, Minimal Bruising/Swelling Episiotomy/Laceration: None Bladder Status: Voiding - Exam Physical Findings Comment:: patient is sleeping well. - Problem List & Annotations (1) PROM with onset of labor within 24 hours, delivered, curr hospitaliz SNOMED Code(s): 197607939, 677186330 Code(s): O42.00 - JEB ROM, ONSET LABOR W/N 24 HR OF RUPT, UNSP WEEKS OF GEST Status: Acute Current Visit: Yes (2) Vaginal delivery SNOMED Code(s): 637211438 Code(s): O80 - ENCOUNTER FOR FULL-TERM UNCOMPLICATED DELIVERY Status: Acute Current Visit: Yes (3) Gestational thrombocytopenia without hemorrhage SNOMED Code(s): 922229538 Code(s): O99.119 - OTH DIS OF BLD/BLD-FORM ORG/IMMUN MECHNSM COMP PREG,UNSP TRI; D69.6 - THROMBOCYTOPENIA, UNSPECIFIED Status: Acute Current Visit: Yes (4) Chronic hypertension affecting SNOMED Code(s): 35490400 Code(s): O10.919 - UNSP PRE-EXISTING HTN COMP , UNSP TRIMESTER Status: Acute Current Visit: Yes - Problem List Review Problem List Initiated/Reviewed/Updated: Yes - My Orders Last 24 Hours: My Active Orders 01/12/20 02:48 Acetaminophen [Tylenol Extra Strength] 1,000 mg PO Q4H PRN Acetaminophen [Tylenol Extra Strength] 500 mg PO Q4H PRN Benzocaine/Menthol [Dermoplast Pain Relief 20%-0.5% [place]] 78 gm TOP ASDIRECTED PRN Docusate Sodium [Colace] 100 mg PO BID PRN Ibuprofen [Motrin] 400 mg PO Q4H PRN Ibuprofen [Motrin] 800 mg PO Q6H PRN Lanolin [Lansinoh HPA] See Dose Instructions TOP ASDIRECTED PRN Tranexamic Acid [Cyklokapron] 1,000 mg Sodium Chloride 0.9% [Normal Saline] 100 ml IV ONETIME bisacodyL [Dulcolax] 10 mg RECTAL ONETIME PRN witch Mari [Tucks] 1 pad TOP ASDIRECTED PRN 01/12/20 02:49 May Shower [RC] ASDIRECTED Up ad Arline [RC] ASDIRECTED Vital Signs [RC] PER UNIT ROUTINE Assess Lochia [WOMSER] Per Unit Routine Assess Uterine Involution [WOMSER] Per Unit Routine Perineal Care [OM.PC] Per Unit Routine Peripheral IV Discontinue [OM.PC] Routine 01/12/20 Breakfast Regular Diet [DIET] - Assessment Assessment:: PPD 0 after , PROM with induction, BP improved after delivery - Plan Plan:: Continue care.
[2020-01-13] MEDS: Ibuprofen 800 MG Tab PO PRN (06:56)
--- NOTE | 2020-01-13 10:52 | PCM.PNPP ---
- General Info Date of Service: 01/13/20 Functional Status: Reports: Pain Controlled, Tolerating Diet, Ambulating, Urinating - Review of Systems General: Reports: No Symptoms HEENT: Reports: No Symptoms Pulmonary: Reports: No Symptoms Cardiovascular: Reports: No Symptoms Gastrointestinal: Reports: No Symptoms Genitourinary: Reports: No Symptoms Musculoskeletal: Reports: No Symptoms Skin: Reports: No Symptoms Neurological: Reports: No Symptoms Psychiatric: Reports: No Symptoms - Patient Data Vital Signs - Most Recent: Last Vital Signs Temp 36.5 C 01/13/20 05:11 Pulse 89 01/13/20 05:11 Resp 18 01/13/20 05:11 BP 132/95 H 01/13/20 05:11 Pulse Ox 96 01/13/20 05:11 Weight - Most Recent: 190 lb Med Orders - Current: Current Medications Acetaminophen (Tylenol Extra Strength) 500 mg PO Q4H PRN PRN Reason: Pain Acetaminophen (Tylenol Extra Strength) 1,000 mg PO Q4H PRN PRN Reason: Pain Benzocaine/Menthol (Dermoplast Pain Relief 20%-0.5% [place]) 78 gm TOP ASDIRECTED PRN PRN Reason: Perineal Comfort Measure Bisacodyl (Dulcolax) 10 mg RECTAL ONETIME PRN PRN Reason: Constipation Docusate Sodium (Colace) 100 mg PO BID PRN PRN Reason: Constipation Emollient Ointment (Lansinoh Hpa) 0 gm TOP ASDIRECTED PRN PRN Reason: Sore Nipples Last Admin: 01/12/20 20:54 Dose: 7 gm Tranexamic Acid 1,000 mg/ (Sodium Chloride) 110 mls @ 660 mls/hr IV ONETIME PRN PRN Reason: Bleeding Ibuprofen (Motrin) 400 mg PO Q4H PRN PRN Reason: Pain Ibuprofen (Motrin) 800 mg PO Q6H PRN PRN Reason: Pain Last Admin: 01/13/20 06:56 Dose: 800 mg Witch Mari (Tucks) 1 pad TOP ASDIRECTED PRN PRN Reason: comfort care Discontinued Medications Bupivacaine HCl (Sensorcaine-Mpf 0.25%) Confirm Administered Dose 10 ml .ROUTE .STK-MED ONE Stop: 01/11/20 23:53 Butorphanol Tartrate (Stadol) 1 mg IVPUSH Q1H PRN PRN Reason: Pain Last Admin: 01/11/20 18:31 Dose: 1 mg Carboprost Tromethamine (Hemabate Ds) 250 mcg IM ASDIRECTED PRN PRN Reason: Post Hemorrhage Fentanyl (Sublimaze) Confirm Administered Dose 100 mcg .ROUTE .[employer] ONE Stop: 01/11/20 23:26 Tranexamic Acid 1,000 mg/ (Sodium Chloride) 110 mls @ 660 mls/hr IV ONETIME PRN PRN Reason: Bleeding Lactated Ringer's (Ringers, Lactated) 1,000 mls @ 150 mls/hr IV ASDIRECTED [facility] Last Admin: 01/11/20 23:59 Dose: 500 mls/hr Oxytocin/Sodium Chloride (Oxytocin 30 Unit/500 Ml-Ns) 30 unit in 500 mls @ 500 mls/hr IV ASDIRECTED [facility] Last Infusion: 01/12/20 02:40 Dose: 500 mls/hr Oxytocin/Sodium Chloride (Oxytocin 30 Unit/500 Ml-Ns) 30 unit in 500 mls @ 2 mls/hr IV TITRATE CONCHIS; Protocol Last Titration: 01/12/20 02:25 Dose: 0 munits/min, 0 mls/hr Fentanyl/Bupivacaine HCl (Fentanyl/Bupivacaine/Ns 2 Mcg-0.125% 250 Ml) Confirm Administered Dose 250 mls @ as directed .ROUTE .[employer] ONE Stop: 01/11/20 19:37 Lidocaine HCl (Xylocaine 1%) 50 ml INJECT ONETIME PRN PRN Reason: Laceration repair Last Admin: 01/12/20 02:35 Dose: 50 ml Methylergonovine Maleate (Methergine) 0.2 mg IM ASDIRECTED PRN PRN Reason: Post Hemorrhage Misoprostol (Cytotec) 200 mcg PO ONETIME PRN PRN Reason: Post Hemorrhage Nalbuphine HCl (Nubain) 10 mg IVPUSH Q1H PRN PRN Reason: Pain (severe 7-10) Sodium Chloride (Saline Flush) 10 ml FLUSH ASDIRECTED PRN PRN Reason: Keep Vein Open Sodium Chloride (Saline Flush) 2.5 ml FLUSH ASDIRECTED PRN PRN Reason: Keep Vein Open Sodium Chloride (Normal Saline) 10 ml IV ASDIRECTED PRN PRN Reason: IV Use Sterile Water (Sterile Water For Irrigation) 1,000 ml IRR ASDIRECTED PRN PRN Reason: delivery Last Admin: 01/12/20 02:30 Dose: 1,000 ml Terbutaline Sulfate (Brethine) 0.25 mg SUBCUT ASDIRECTED PRN PRN Reason: Tacysystole - Infant Interaction Infant Disposition, : in Room with Family Interaction: Holding Infant Feeding: Breastfed Infant; Nursed Well Support Person: Significant Other - Recovery Exam Fundal Tone: Firm Fundal Level: 1 Fingerbreadths Below Umbilicus Fundal Placement: Midline Lochia Amount: Scant Lochia Color: Rubra/Red Perineum Description: Intact, Minimal Bruising/Swelling Episiotomy/Laceration: None Bladder Status: Voiding - Exam General: Alert, Oriented, Cooperative, No Acute Distress HEENT: Pupils Equal, Pupils Reactive Neck: Supple, Trachea Midline, No JVD Lungs: Normal Respiratory Effort GI/Abdominal Exam: Normal Bowel Sounds, Soft, Non-Tender, No Distention Extremities: Normal Inspection, Normal Range of Motion, Non-Tender, No Pedal Edema Skin: Warm, Dry, Intact Wound/Incisions: Healing Well Neurological: No New Focal Deficit Psy/Mental Status: Alert, Normal Affect, Normal Mood - Problem List Review Problem List Initiated/Reviewed/Updated: Yes - My Orders Last 24 Hours: My Active Orders 01/13/20 10:47 Ready for Discharge [RC] PER UNIT ROUTINE - Assessment Assessment:: 29yo with chronic HTN, gestational thrombocytopenia. PPD 1 after , PROM with induction, BP improved after delivery - Plan Plan:: BP wnl, not on antihypertensives Hgb stable, plt are improving, minimal bleeding Tolerating PO, ambulating and voiding Stable for discharge home. BP check in 1 week. Reviewed care instructions.
== END 2020-01-13 11:48 | disposition home or self-care (01) | DRG 806 ==
LOC: MW.OBCHECK 10:18 → MW.OB 10:20 → MW.OBCHECK 11:25 → MW.OB 11:25 → OBSVTOIN 01-12 02:24 → MW.OB 01-12 06:30
PROVIDERS: ADMIT Obstetrics & Gynecology; ATTEND Obstetrics & Gynecology
PROC: 10E0XZZ Delivery of Products of Conception, External Approach (ICD-10-PCS; principal; 2020-01-12)
PROC: 10E0XZZ Delivery of Products of Conception, External Approach (ICD-10-PCS; 2020-01-12)
PROC: 3E033VJ Introduction of Other Hormone into Peripheral Vein, Percutaneous Approach (ICD-10-PCS; 2020-01-12)
PROC: 3E0R3BZ Introduction of Anesthetic Agent into Spinal Canal, Percutaneous Approach (ICD-10-PCS; 2020-01-12)
DX: O42.02 Full-term premature rupture of membranes, onset of labor within 24 hours of rupture (principal); O99.12 Other diseases of the blood and blood-forming organs and certain disorders involving the immune mechanism complicating childbirth; Z37.0 Single live birth; O10.92 Unspecified pre-existing hypertension complicating childbirth; D69.6 Thrombocytopenia, unspecified; O76 Abnormality in fetal heart rate and rhythm complicating labor and delivery; Z3A.39 39 weeks gestation of pregnancy
CPT/HCPCS: 01967; 36415; 51701; 51702; 59025; 59409; 80053; 81003; 82570; 82803; 84112; 84156; 84550; 85027; 86592; 86593; 86850; 86900; 86901; A9270-GY; J0595; J2001; J2590; J3010; J3490; J7120

== ENCOUNTER 2025-07-03 18:52 | Observation (INO) | payer BC, MEDICAID ==
[2025-07-03] MEDS: NIFEdipine 30 MG Tab.ER PO ONE (19:43)
[2025-07-03] MEDS ORDERED: Calcium Gluconate 10% 1 GM/10 ML SDV IV PRN (19:46)
[2025-07-03] MEDS ORDERED: Sodium Chloride 0.9% 2.5 ML Syringe FLUSH PRN (19:46)
[2025-07-03] MEDS ORDERED: Sodium Chloride 0.9% 10 ML Syringe FLUSH PRN (19:46)
[2025-07-03 19:57] LABS: BASOPHILS ABSOLUTE AUTO 0.05 K/uL (0.00-0.20); BASOPHILS PERCENT AUTO 0.6 % (0.0-1.0); EOSINOPHILS ABSOLUTE AUTO 0.12 K/uL (0.00-0.45); EOSINOPHILS PERCENT AUTO 1.3 % (0.0-6.0); IMMATURE GRAN ABSOLUTE AUTO 0.11 K/uL (0.00-0.05); IMMATURE GRAN PERCENT AUTO 1.2 % (0.0-0.4); LYMPHOCYTES ABSOLUTE AUTO 1.84 K/uL (1.00-4.80); LYMPHOCYTES PERCENT AUTO 20.2 % (24.0-44.0); MEAN PLATELET VOLUME 10.2 fL (9.4-12.3); MONOCYTES ABSOLUTE AUTO 0.51 K/uL (0.00-0.80); MONOCYTES PERCENT AUTO 5.6 % (0.0-8.0); NEUTROPHILS ABSOLUTE AUTO 6.46 K/uL (1.80-7.70); NEUTROPHILS PERCENT AUTO 71.1 % (41.0-71.0); NRBC ABSOLUTE 0.00 K/uL (0.00-0.02); NRBC PERCENT 0.0 /100WBC (0.0-0.2); PLATELET COUNT,PLT 174 K/uL (150-400); RED BLOOD CELL COUNT 3.95 M/uL (4.10-5.30); WHITE BLOOD CELL COUNT,WBC 9.09 K/uL (3.9-11.3)
[2025-07-03 20:15] LABS: CREATININE,URINE RAND 43.2 mg/dL
[2025-07-03 20:19] LABS: A/G RATIO 0.9 (0.9-1.6); ALANINE AMINOTRANSFERASE,ALT 18.0 IU/L (14-63); ASPARTATE AMNIOTRANSFERASE,AST 16.0 IU/L (15-37); BILIRUBIN TOTAL 0.4 mg/dL (0.2-1.0); BLOOD UREA NITROGEN,BUN 7.0 mg/dL (7.0-18.0); CARBON DIOXIDE,CO2 26.3 mmol/L (21.0-32.0); CHLORIDE,CL 104.0 mmol/L (98-107); CREATININE 0.6 mg/dL (0.6-1.0); EST CRCL DRUG DOSING (CG) 103.5 mL/min; GLUCOSE RANDOM 81.0 mg/dL (74-106); POTASSIUM,K 3.6 mmol/L (3.5-5.1); PROTEIN TOTAL,TP 6.7 g/dL (6.4-8.2); SODIUM,NA 139.0 mmol/L (136-145)
[2025-07-03 20:22] LABS: PROTEIN,URINE RANDOM < 6.0 mg/dL (<11.9)
[2025-07-03 20:23] LABS: ESTIMATED GFR 120.0 mL/min (>60)
[2025-07-03] MEDS: Betamethasone Acetate/Betamethasone Sod Phosphate 6 MG/1 ML MDV IM SCH (22:53)
[2025-07-03] MEDS: Labetalol 100 MG/20 ML MDV IVPUSH ONE (23:10)
[2025-07-03] MEDS: Lactated Ringers 1,000 ML IV SCH (23:15)
[2025-07-03] MEDS: Magnesium Sulfate 4 GM/100 mL 4 GM in Premix Bag 1 BAG IV ONE (23:18)
[2025-07-03] MEDS: Labetalol 100 MG/20 ML MDV ONE (23:22)
[2025-07-03] MEDS: Magnesium Sulfate 2 GM/50 mL 2 GM in Premix Bag 1 BAG IV SCH (23:39)
[2025-07-04] MEDS: Magnesium Sulfate 20 GM/500mL 20 GM/500 ML BAG IV SCH (00:04)
== END 2025-07-04 01:18 ==
LOC: MW.OBCHECK 18:52 → MW.OB 21:48
PROVIDERS: ADMIT Obstetrics & Gynecology; ATTEND Obstetrics & Gynecology Obstetrics
DX: O16.2 Unspecified maternal hypertension, second trimester (principal); Z3A.24 24 weeks gestation of pregnancy
CPT/HCPCS: 36415; 51702; 59025; 76805; 80053; 82570; 84156; 85025; 96365; 96366; 96372; 96375; 96376; A9270; G0378; J0702; J1920; J3475; J7120; 99221; 99238